=== PATIENT | female | born 1980 | race Caucasian/White ===

== ENCOUNTER 2017-07-31 20:28 | Emergency (ER) | payer OTHER ==
[~2017-07-31] VITALS: Ht 172.7 cm; Wt 44.5 kg
[~2017-07-31 20:28] MED LIST: ALBU.083IS IH; AMOCLA400S PO; ARTTEAOPSO BOTHEYES; BACL10; BACL10 PO; BACL10 PT; BACL20 PEG; BACLOFEN; BACLOFEN PUMP; BACLOFEN SQ; BCOIRO PO; BELPHEER PO; BISA10S PR; BISA5EC PO; CEPH500 PO; CHOL10002 PT; CIPHYDOTSU OT; Cranberry425 MG PT; DIAZ5I PO; DIAZEPAM 1 MG/ML PO; DIVA125; DIVA125 PO; DIVA125EC PO; DOCU100 PO; ERYT.5TO BOTHEYES; ESTR.05P TOP; ESTR.05PBW TOP; FENT25TP TOP; FENT50TP TOP; FERR325 PO; FERSU300; Ferrous Sulfat325 M2 PT; GENTAMICIN BLADIN; GENTAMYCIN; HYDACE5 PO; HYDACE7.5L PO; HYDHOMSY PO; HYDMOR2 PO; IBUP400 PO; IBUP400 PT; LAVAP17G PO; LEVO750 PT; LIDO5TP TOP; LORA1 PO; LORA2 PO; MAGCIT300 PO; MIRALAX17 GM PT; MIRT15 PO; MULTCH; MULVITA PO; MUPI2TO TOP; NEOPOLHCSU OT; OLAN5 PT; ONDA4ODT MM; PHENO20EL; PHENO20EL PO; PHENO20EL PT; RANI150 PO; RANI150EL PO; RANI150EL PT; READY TO USE E133 ML PR; RXLORA1 PO; RXONDA4ODT MM; RXTOBROPSO OP; SODFLU1.1; SULTRIDS PO; TOLN45 TOP; TOLT4 PT; TRAZ50 PO; TRIM100S PR; VALP250S60 PT; VITAMIN B COMPLEX PT; Ventolin Soln3 ML INH; Ventolin5 MG/1 ML; Vivelle-Dot1 EAC1 TD; [UNRECOGNIZED DRUG - OTHER]; [UNRECOGNIZED DRUG - OTHER]; [UNRECOGNIZED DRUG - SUPPLY]
[2017-07-31 21:33] LABS: BASOPHILS ABSOLUTE AUTO 0.01 K/mm3 (0.00-0.23); BASOPHILS PERCENT AUTO 0 % (0-2); EOSINOPHILS ABSOLUTE AUTO 0.02 K/mm3 (0.00-0.68); EOSINOPHILS PERCENT AUTO 0 % (0-6); Hemoglobin 13.6 g/dL (11.5-16.0); IMMATURE GRAN ABSOLUTE AUTO 0.01 K/mm3 (0.00-0.10); IMMATURE GRAN PERCENT AUTO 0 % (0-1); LYMPHOCYTES ABSOLUTE AUTO 2.32 K/mm3 (0.84-5.20); LYMPHOCYTES PERCENT AUTO 36 % (21-46); MONOCYTES ABSOLUTE AUTO 0.71 K/mm3 (0.16-1.47); MONOCYTES PERCENT AUTO 11 % (4-13); Mean Corpuscular HGB 30.2 pg (26.0-34.0); Mean Corpuscular HGB Conc 33.2 g/dL (31.5-36.5); Mean Corpuscular Volume 91 fL (80-100); Mean Platelet Volume 11.3 fL (9.1-12.4); NEUTROPHILS ABSOLUTE AUTO 3.35 K/mm3 (1.96-9.15); NEUTROPHILS PERCENT AUTO 52 % (41-73); Platelet Count 109 K/mm3 (150-400); RDW Standard Deviation 50.2 fL (35.1-46.3); Red Blood Cell Count 4.51 M/mm3 (3.80-5.20); White Blood Cell Count 6.42 K/mm3 (4.00-11.30)
[2017-07-31 21:50] LABS: Alanine Aminotransfer (ALT/SGP 20 U/L (12-78); Albumin, Blood 2.9 g/dL (3.4-5.0); Albumin/Globulin Ratio 0.6 (0.8-1.8); Alk Phos 101 U/L (50-136); Anion Gap 6 mmol/L (6-16); Aspartate Aminotrans (AST/SGOT 22 U/L (12-37); Bilirubin, Total 0.2 mg/dL (0.1-1.0); Blood Urea Nitrogen 5 mg/dL (8-24); Bun/Creatinine Ratio 17.7 (12.0-20.0); CO2, Blood 31 mmol/L (21-32); Calcium, Blood 9.1 mg/dL (8.5-10.1); Chloride, Blood 99 mmol/L (98-108); Creatinine, Blood 0.28 mg/dL (0.40-1.00); Globulin, Blood 5.2 g/dL (2.2-4.0); Glomerular Filtration Rate >60 (60-); Glucose, Blood 68 mg/dL (70-99); Magnesium, Blood 1.9 mg/dL (1.6-2.4); Potassium, Blood 3.8 mmol/L (3.5-5.5); Sodium, Blood 136 mmol/L (136-145); Total Protein, Blood 8.1 g/dL (6.4-8.2)
== END 2017-07-31 23:36 | disposition home or self-care (01) ==
LOC: ER 20:28
PROVIDERS: Emergency Medicine
DX: E16.2 Hypoglycemia, unspecified (principal); Z79.899 Other long term (current) drug therapy; Z86.14 Personal history of Methicillin resistant Staphylococcus aureus infection; Z86.19 Personal history of other infectious and parasitic diseases
CPT/HCPCS: 36415; 74176; 80053; 83690; 83735; 85025; 99284

== ENCOUNTER → 2017-08-21 | Outpatient (CLI) | payer OTHER ==
[~2017-08-21] MED LIST changes: +ALBU2.5V5 NEB; +ALLERGY REL1 MG/1 ML PT; +AMOC200S75 PT; +ATROPINE 1% SL; +Acetaminophen325 M1 PO; +Acidophilus La100 GM PT; +DIAZ5I PT; +Ipratr-Albuterol3 ML INH; +Milk Of Ma400 MG/5 M PT; +Nystop60 GM TOP; +TRIPLE ANTIBIO1 EACH TOP; +[UNRECOGNIZED DRUG - OTHER] BOTHEARS; +[UNRECOGNIZED DRUG - OTHER] PT
== END ==
LOC: OLS 10:42
DX: L89.319 Pressure ulcer of right buttock, unspecified stage (principal)
CPT/HCPCS: 87070; 87077; 87186; 87205

== ENCOUNTER 2017-10-30 06:51 | Inpatient (IN) | payer OTHER ==
[~2017-10-30] VITALS: Ht 142.2 cm; Wt 43.5 kg
[~2017-10-30 06:51] MED LIST changes: -ALBU2.5V5 NEB; -ALLERGY REL1 MG/1 ML PT; -AMOC200S75 PT; -ATROPINE 1% SL; -Acetaminophen325 M1 PO; -Acidophilus La100 GM PT; -DIAZ5I PT; -Ipratr-Albuterol3 ML INH; -Milk Of Ma400 MG/5 M PT; -Nystop60 GM TOP; -TRIPLE ANTIBIO1 EACH TOP; -[UNRECOGNIZED DRUG - OTHER] BOTHEARS; -[UNRECOGNIZED DRUG - OTHER] PT
[2017-10-30 07:23] LABS: Source, Urine Catheter
[2017-10-30 07:28] LABS: Bilirubin, Urine Neg (Neg); Blood, Urine 3+ (Neg); Glucose Qualitative, Urine Neg (Neg); Ketones, Urine 1+ (Neg); Leukocyte Esterase, Urine 3+ (Neg); Nitrite, Urine Neg (Neg); Protein, Urine 3+ (Neg); Specific Gravity, Urine 1.015 (1.003-1.022); Urobilinogen, Urine 2+ (Normal)
[2017-10-30 07:35] LABS: Calcium, Ionized (POC) 1.24 mmol/L (1.10-1.46); Chloride (POC) 87 mmol/L (98-108); Creatinine (POC) 0.4 mg/dL (0.6-1.0); Glucose (ISTAT POC) 131 mg/dL (70-99); Hemoglobin (POC) 15.6 g/dL (12.0-16.0); Potassium (POC) 4.6 mmol/L (3.5-5.5); Sodium (POC) 124 mmol/L (135-148); Total CO2 (POC) 29 mmol/L (21-32)
[2017-10-30 07:43] LABS: Appearance, Urine Hazy (Clear); Color, Urine Yellow (P-Yellow); Squamous Epithelial Cells Few /hpf (Few); White Blood Cells, Urine 50-100 /hpf (0-5)
[2017-10-30 07:45] LABS: Bacteria Mod /hpf
[2017-10-30 07:46] LABS: Calcium Oxalate Crystals Few /hpf; Renal Epithelial Few /hpf ([, 0-Rare])
[2017-10-30 07:55] LABS: Alanine Aminotransfer (ALT/SGP 27 U/L (12-78); Albumin/Globulin Ratio 0.5 (0.8-1.8); Alk Phos 95 U/L (50-136); Anion Gap 8 mmol/L (6-16); Aspartate Aminotrans (AST/SGOT 30 U/L (12-37); Bilirubin, Total 0.4 mg/dL (0.1-1.0); Blood Urea Nitrogen 9 mg/dL (8-24); Bun/Creatinine Ratio 22.8 (12.0-20.0); CO2, Blood 27 mmol/L (21-32); Calcium, Blood 9.1 mg/dL (8.5-10.1); Chloride, Blood 89 mmol/L (98-108); Globulin, Blood 5.5 g/dL (2.2-4.0); Glomerular Filtration Rate >60 (60-); Glucose, Blood 123 mg/dL (70-99); Potassium, Blood 4.6 mmol/L (3.5-5.5); Sodium, Blood 124 mmol/L (136-145); Total Protein, Blood 8.5 g/dL (6.4-8.2)
[2017-10-30 08:00] LABS: BASOPHILS ABSOLUTE AUTO 0.02 K/mm3 (0.00-0.23); BASOPHILS PERCENT AUTO 0 % (0-2); EOSINOPHILS PERCENT AUTO 0 % (0-6); Hemoglobin 14.5 g/dL (11.5-16.0); IMMATURE GRAN ABSOLUTE AUTO 0.03 K/mm3 (0.00-0.10); IMMATURE GRAN PERCENT AUTO 0 % (0-1); LYMPHOCYTES PERCENT AUTO 14 % (21-46); MONOCYTES ABSOLUTE AUTO 0.64 K/mm3 (0.16-1.47); MONOCYTES PERCENT AUTO 7 % (4-13); Mean Corpuscular HGB 30.7 pg (26.0-34.0); Mean Corpuscular HGB Conc 33.7 g/dL (31.5-36.5); Mean Corpuscular Volume 91 fL (80-100); Mean Platelet Volume 11.9 fL (9.1-12.4); NEUTROPHILS ABSOLUTE AUTO 7.13 K/mm3 (1.96-9.15); NEUTROPHILS PERCENT AUTO 78 % (41-73); Platelet Count 120 K/mm3 (150-400); RDW Coefficient Variation 14.8 % (11.7-14.2); RDW Standard Deviation 49.4 fL (35.1-46.3); Red Blood Cell Count 4.72 M/mm3 (3.80-5.20); White Blood Cell Count 9.12 K/mm3 (4.00-11.30)
[2017-10-30] MEDS ORDERED: ATROPINE 1% SL (08:08)
[2017-10-30 08:53] LABS: Base Excess Venous 3.6 mmol/L; Bicarbonate Venous 25.8 mmol/L (24.0-30.0); PCO2 Venous 58.5 mmHg (38-42); PO2 Venous 49.3 mmHg (38-42); pH Blood Venous 7.32 (7.34-7.37)
[2017-10-30] MEDS ORDERED: BACLOFEN PUMP (10:30)
[2017-10-30] MEDS ORDERED: [UNRECOGNIZED DRUG - OTHER] BOTHEARS (10:44)
[2017-10-30] MEDS ORDERED: Nystop60 GM TOP (10:48)
[2017-10-30] MEDS ORDERED: ALLERGY REL1 MG/1 ML PT (10:51)
[2017-10-30] MEDS ORDERED: [UNRECOGNIZED DRUG - OTHER] PT (10:54)
[2017-10-30] MEDS ORDERED: Ipratr-Albuterol3 ML INH (10:55)
[2017-10-30] MEDS ORDERED: Acetaminophen325 M1 PO (10:57)
[2017-10-30] MEDS ORDERED: TRIPLE ANTIBIO1 EACH TOP (10:59)
[2017-10-30] MEDS ORDERED: Milk Of Ma400 MG/5 M PT (11:02)
[2017-10-30] MEDS ORDERED: Acidophilus La100 GM PT (11:10)
[2017-10-30] MEDS ORDERED: DIAZ5I PT (11:13)
[2017-10-30 16:04] LABS: Source, Urine Catheter
[2017-10-30 16:10] LABS: Appearance, Urine Clear (Clear); Bilirubin, Urine Neg (Neg); Blood, Urine 2+ (Neg); Color, Urine Yellow (P-Yellow); Glucose Qualitative, Urine Neg (Neg); Ketones, Urine Neg (Neg); Leukocyte Esterase, Urine 2+ (Neg); Nitrite, Urine Neg (Neg); Protein, Urine Neg (Neg); Specific Gravity, Urine 1.005 (1.003-1.022); Urobilinogen, Urine NORM (Normal)
[2017-10-30 16:25] LABS: Bacteria Few /hpf; Squamous Epithelial Cells Few /hpf (Few); Transitional Epithelial Cells Few /hpf ([, 0-Rare])
[2017-10-31 06:11] LABS: Anion Gap 7 mmol/L (6-16); Blood Urea Nitrogen 7 mg/dL (8-24); Bun/Creatinine Ratio 20.2 (12.0-20.0); CO2, Blood 30 mmol/L (21-32); Calcium, Blood 9.2 mg/dL (8.5-10.1); Chloride, Blood 102 mmol/L (98-108); Creatinine, Blood 0.35 mg/dL (0.40-1.00); Glomerular Filtration Rate >60 (60-); Glucose, Blood 64 mg/dL (70-99); Potassium, Blood 3.7 mmol/L (3.5-5.5); Sodium, Blood 139 mmol/L (136-145)
[2017-11-02 04:55] LABS: BASOPHILS ABSOLUTE AUTO 0.02 K/mm3 (0.00-0.23); BASOPHILS PERCENT AUTO 0 % (0-2); EOSINOPHILS ABSOLUTE AUTO 0.08 K/mm3 (0.00-0.68); EOSINOPHILS PERCENT AUTO 2 % (0-6); Hematocrit 30.2 % (33.0-51.0); Hemoglobin 9.8 g/dL (11.5-16.0); IMMATURE GRAN ABSOLUTE AUTO 0.03 K/mm3 (0.00-0.10); IMMATURE GRAN PERCENT AUTO 1 % (0-1); LYMPHOCYTES ABSOLUTE AUTO 2.55 K/mm3 (0.84-5.20); LYMPHOCYTES PERCENT AUTO 49 % (21-46); MONOCYTES ABSOLUTE AUTO 0.67 K/mm3 (0.16-1.47); MONOCYTES PERCENT AUTO 13 % (4-13); Mean Corpuscular HGB 30.7 pg (26.0-34.0); Mean Corpuscular HGB Conc 32.5 g/dL (31.5-36.5); Mean Platelet Volume 11.1 fL (9.1-12.4); NEUTROPHILS ABSOLUTE AUTO 1.83 K/mm3 (1.96-9.15); NEUTROPHILS PERCENT AUTO 35 % (41-73); Platelet Count 65 K/mm3 (150-400); Red Blood Cell Count 3.19 M/mm3 (3.80-5.20); White Blood Cell Count 5.18 K/mm3 (4.00-11.30)
[2017-11-02 05:16] LABS: Mean Corpuscular Volume 95 fL (80-100)
[2017-11-02 05:20] LABS: Anion Gap 7 mmol/L (6-16); Blood Urea Nitrogen 2 mg/dL (8-24); Bun/Creatinine Ratio 5.8 (12.0-20.0); CO2, Blood 27 mmol/L (21-32); Calcium, Blood 8.5 mg/dL (8.5-10.1); Chloride, Blood 109 mmol/L (98-108); Creatinine, Blood 0.35 mg/dL (0.40-1.00); Glomerular Filtration Rate >60 (60-); Glucose, Blood 118 mg/dL (70-99); Potassium, Blood 2.7 mmol/L (3.5-5.5); Sodium, Blood 143 mmol/L (136-145)
[2017-11-02 08:06] LABS: BASOPHILS ABSOLUTE AUTO 0.01 K/mm3 (0.00-0.23); BASOPHILS PERCENT AUTO 0 % (0-2); EOSINOPHILS ABSOLUTE AUTO 0.09 K/mm3 (0.00-0.68); EOSINOPHILS PERCENT AUTO 2 % (0-6); Hemoglobin 9.9 g/dL (11.5-16.0); IMMATURE GRAN ABSOLUTE AUTO 0.02 K/mm3 (0.00-0.10); IMMATURE GRAN PERCENT AUTO 0 % (0-1); LYMPHOCYTES ABSOLUTE AUTO 2.27 K/mm3 (0.84-5.20); LYMPHOCYTES PERCENT AUTO 43 % (21-46); MONOCYTES ABSOLUTE AUTO 0.61 K/mm3 (0.16-1.47); MONOCYTES PERCENT AUTO 12 % (4-13); Mean Corpuscular HGB 31.5 pg (26.0-34.0); Mean Corpuscular Volume 96 fL (80-100); Mean Platelet Volume 10.9 fL (9.1-12.4); NEUTROPHILS ABSOLUTE AUTO 2.32 K/mm3 (1.96-9.15); NEUTROPHILS PERCENT AUTO 44 % (41-73); Platelet Count 65 K/mm3 (150-400); RDW Coefficient Variation 15.1 % (11.7-14.2); RDW Standard Deviation 52.6 fL (35.1-46.3); Red Blood Cell Count 3.14 M/mm3 (3.80-5.20); White Blood Cell Count 5.32 K/mm3 (4.00-11.30)
[2017-11-03 05:50] LABS: BASOPHILS ABSOLUTE AUTO 0.01 K/mm3 (0.00-0.23); BASOPHILS PERCENT AUTO 0 % (0-2); EOSINOPHILS ABSOLUTE AUTO 0.09 K/mm3 (0.00-0.68); EOSINOPHILS PERCENT AUTO 2 % (0-6); Hematocrit 29.4 % (33.0-51.0); Hemoglobin 9.7 g/dL (11.5-16.0); IMMATURE GRAN ABSOLUTE AUTO 0.02 K/mm3 (0.00-0.10); IMMATURE GRAN PERCENT AUTO 1 % (0-1); LYMPHOCYTES ABSOLUTE AUTO 1.32 K/mm3 (0.84-5.20); LYMPHOCYTES PERCENT AUTO 31 % (21-46); MONOCYTES ABSOLUTE AUTO 0.58 K/mm3 (0.16-1.47); MONOCYTES PERCENT AUTO 14 % (4-13); Mean Corpuscular HGB 31.3 pg (26.0-34.0); Mean Corpuscular Volume 95 fL (80-100); Mean Platelet Volume 11.1 fL (9.1-12.4); NEUTROPHILS ABSOLUTE AUTO 2.27 K/mm3 (1.96-9.15); NEUTROPHILS PERCENT AUTO 53 % (41-73); Platelet Count 78 K/mm3 (150-400); RDW Coefficient Variation 14.8 % (11.7-14.2); RDW Standard Deviation 51.5 fL (35.1-46.3); White Blood Cell Count 4.29 K/mm3 (4.00-11.30)
[2017-11-03 06:03] LABS: Anion Gap 8 mmol/L (6-16); Blood Urea Nitrogen 1 mg/dL (8-24); Bun/Creatinine Ratio 2.6 (12.0-20.0); CO2, Blood 27 mmol/L (21-32); Calcium, Blood 8.1 mg/dL (8.5-10.1); Chloride, Blood 110 mmol/L (98-108); Creatinine, Blood 0.39 mg/dL (0.40-1.00); Glomerular Filtration Rate >60 (60-); Glucose, Blood 102 mg/dL (70-99); Magnesium, Blood 1.6 mg/dL (1.6-2.4); Phosphorus, Blood 3.6 mg/dL (2.5-4.9); Sodium, Blood 145 mmol/L (136-145)
[2017-11-04 04:56] LABS: BASOPHILS ABSOLUTE AUTO 0.02 K/mm3 (0.00-0.23); BASOPHILS PERCENT AUTO 0 % (0-2); EOSINOPHILS ABSOLUTE AUTO 0.07 K/mm3 (0.00-0.68); EOSINOPHILS PERCENT AUTO 2 % (0-6); Hematocrit 28.5 % (33.0-51.0); Hemoglobin 9.3 g/dL (11.5-16.0); IMMATURE GRAN ABSOLUTE AUTO 0.03 K/mm3 (0.00-0.10); IMMATURE GRAN PERCENT AUTO 1 % (0-1); LYMPHOCYTES ABSOLUTE AUTO 2.56 K/mm3 (0.84-5.20); LYMPHOCYTES PERCENT AUTO 53 % (21-46); MONOCYTES ABSOLUTE AUTO 0.85 K/mm3 (0.16-1.47); MONOCYTES PERCENT AUTO 18 % (4-13); Mean Corpuscular HGB 30.9 pg (26.0-34.0); Mean Corpuscular HGB Conc 32.6 g/dL (31.5-36.5); Mean Corpuscular Volume 95 fL (80-100); Mean Platelet Volume 10.9 fL (9.1-12.4); NEUTROPHILS ABSOLUTE AUTO 1.27 K/mm3 (1.96-9.15); NEUTROPHILS PERCENT AUTO 27 % (41-73); Platelet Count 86 K/mm3 (150-400); RDW Coefficient Variation 14.8 % (11.7-14.2); RDW Standard Deviation 51.7 fL (35.1-46.3); Red Blood Cell Count 3.01 M/mm3 (3.80-5.20)
[2017-11-04 05:08] LABS: Anion Gap 5 mmol/L (6-16); Blood Urea Nitrogen 3 mg/dL (8-24); Bun/Creatinine Ratio 7.9 (12.0-20.0); CO2, Blood 27 mmol/L (21-32); Calcium, Blood 8.3 mg/dL (8.5-10.1); Chloride, Blood 110 mmol/L (98-108); Creatinine, Blood 0.38 mg/dL (0.40-1.00); Glomerular Filtration Rate >60 (60-); Glucose, Blood 107 mg/dL (70-99); Magnesium, Blood 1.9 mg/dL (1.6-2.4); Potassium, Blood 3.9 mmol/L (3.5-5.5); Sodium, Blood 142 mmol/L (136-145)
[2017-11-04 14:45] LABS: Stool Occult Bld Immuno 1 Positive (NEGATIVE)
[2017-11-05 06:04] LABS: Magnesium, Blood 2.1 mg/dL (1.6-2.4); Phosphorus, Blood 3.5 mg/dL (2.5-4.9)
[2017-11-05] MEDS ORDERED: ALBU2.5V5 NEB (13:22)
[2017-11-05] MEDS ORDERED: AMOC200S75 PT (13:28)
== END 2017-11-05 15:59 | disposition home or self-care (01) | DRG 388 ==
LOC: ER 06:51 → MEDS 06:52 → ENPENDDIS 11-05 12:00 → MEDS 11-05 15:59
PROVIDERS: Emergency Medicine; Internal Medicine
DX: K56.600 Partial intestinal obstruction, unspecified as to cause (principal); J69.0 Pneumonitis due to inhalation of food and vomit; J96.21 Acute and chronic respiratory failure with hypoxia; G91.9 Hydrocephalus, unspecified; E87.1 Hypo-osmolality and hyponatremia; N39.0 Urinary tract infection, site not specified; E44.0 Moderate protein-calorie malnutrition; Z68.1 Body mass index [BMI] 19.9 or less, adult; G80.9 Cerebral palsy, unspecified; R13.10 Dysphagia, unspecified; Z98.2 Presence of cerebrospinal fluid drainage device; B95.2 Enterococcus as the cause of diseases classified elsewhere; B96.20 Unspecified Escherichia coli [E. coli] as the cause of diseases classified elsewhere; E87.6 Hypokalemia
CPT/HCPCS: 31720; 36415; 71045; 71250; 74018; 74177; 80047; 80048; 80053; 80164; 81001; 82274; 82803; 82947; 83690; 83735; 84100; 84443; 85014; 85025; 87077; 87086; 87186; 94640; 94760; 94761; 96360; 96361; 99285; C9113; J1650; J2543; J3010; J7030; J7042; J7060; J7120; Q9967